=== PATIENT | male | born 1935 | race Caucasian/White ===

== ENCOUNTER 2020-09-07 08:56 | Day surgery (SDC) | payer MEDICARE, OTHER ==
[~2020-09-07] VITALS: Ht 167.6 cm; Wt 80.8 kg
[~2020-09-07 08:56] MED LIST: ASPI81CH PO; CYAN1000 PO; ERGO400 PO; OMEP20ER PO; Preservision A1 EACH PO; ROSU10TA PO; TAMS.4ER PO
--- NOTE | 2020-09-07 10:15 | NUR ---
Ambulatory in Day Surgery. History, Chart, Medications and Allergies reviewed before start of procedure. Lungs clear T/O to Auscultation. Patient confirms NPO status and agrees with scheduled surgery. Pre-Op teaching done. Pt verbalizes understanding. Patient States Post-Procedure ride home has been arranged.
--- NOTE | 2020-09-07 14:12 | NUR ---
PT DENIES NAUSEA p PO FLUIDS. GIVEN RX AND DC INSTRUCTIONS. VERBALIZES AN UNDERSTANDING c NO QUESTIONS. PT ABLE TO STAND AND DRESS SELF c MINIMAL ASSISTANCE. INCREASED PAIN, REQUESTS PAIN MED PRIOR TO RIDE HOME. MEDICATED PER ORDERS. DRESSING CONTINUES TO BE CDI. IV DC'D, CATH INTACT AND PRESSURE DRESSING APPLIED. OTD IN NAD VIA WC, ESCORTED BY RN. DC PAPERWORK SIGNED BY , [facility] RIDE HOME.
== END 2020-09-07 22:41 | disposition home or self-care (01) ==
LOC: ORSCMMR 08:56 → ORD 10:15 → ORSCMMR 22:41
PROVIDERS: Surgery
PROC: 0YU60JZ Supplement Left Inguinal Region with Synthetic Substitute, Open Approach (ICD-10-PCS; principal; 2020-09-07 10:15)
DX: K40.90 Unilateral inguinal hernia, without obstruction or gangrene, not specified as recurrent (principal); N18.30 Chronic kidney disease, stage 3 unspecified; K21.9 Gastro-esophageal reflux disease without esophagitis; Z87.891 Personal history of nicotine dependence; E78.5 Hyperlipidemia, unspecified; Z79.899 Other long term (current) drug therapy; Z79.82 Long term (current) use of aspirin
CPT/HCPCS: A9270; C1781; J0690; J1100; J2250; J2370; J2405; J2704; J3010; J7120